=== PATIENT | male | born 1950 | race Caucasian/White ===

== ENCOUNTER → 2016-06-01 | Outpatient (CLI) | payer BC, MEDICARE ==
[2016-06-01 16:42] LABS: BUN/CREATININE RATIO 12 (0-10)
== END ==
LOC: LAB 15:57
PROVIDERS: Internal Medicine Nephrology
DX: N18.3 Chronic kidney disease, stage 3 (moderate) (principal)
CPT/HCPCS: 36415; 80053; 81001; 82043; 82570